=== PATIENT | female | born 1990 | race Native Hawaiian/Other Pacific Islander ===

== ENCOUNTER 2016-12-31 10:39 | Outpatient (CLI) | payer BC, OTHER ==
[~2016-12-31 10:39] MED LIST: FOLI1TAB26 PO; SULFASALAZIN500 M1 PO
[2016-12-31 11:11] LABS: PLATELET COUNT 263 K/uL (152-353)
[2016-12-31 12:41] LABS: POTASSIUM 3.5 mmol/L (3.6-5.2); SODIUM 134 mmol/L (136-145)
== END 2016-12-31 11:40 | disposition home or self-care (01) ==
LOC: LABW 10:39
PROVIDERS: Internal Medicine Gastroenterology
DX: K51.80 Other ulcerative colitis without complications (principal); R19.7 Diarrhea, unspecified
CPT/HCPCS: 36415; 80053; 83631; 85027; 86140; 87015; 87045; 87324; 87449; 87899